=== PATIENT | female | born 1945 | race Caucasian/White ===

== ENCOUNTER 2025-04-04 08:35 | Day surgery (SDC) | payer OTHER ==
[2025-04-03 08:44] LABS: BASO % 0.7 % (0.1-1.2); EOS # 0.14 (0.04-0.54); EOS % 3.0 % (0.7-7.0); LYMPH # 1.72 (1.18-3.74); LYMPH % 37.4 % (19.3-53.1); MEAN PLATELET VOLUME 9.70 fl (9.4-12.4); MONO # 0.44 (0.24-0.82); MONO % 9.6 % (4.7-12.5); NEUT # 2.25 (1.56-6.13); NEUT % 48.9 % (34.0-71.1); RED CELL DISTRIBUTION WIDTH 12.7 % (11.6-14.4)
[2025-04-03 08:47] LABS: URINE APPEARANCE Clear; URINE BILIRRUBIN Negative (NEGATIVE); URINE BLOOD Negative; URINE COLOR Yellow; URINE GLUCOSE Negative (NEGATIVE); URINE KETONE Negative (NEGATIVE); URINE LEUKOCYTE Small; URINE NITRATE Negative; URINE PROTEIN Negative (NEGATIVE); URINE UROBILINOGEN 1.0 E.U./dl
[2025-04-03 08:48] LABS: URINE BACTERIA 921.6 uL (0.0-1933); URINE EPITHELIAL CELLS 20.5 uL (0.0-38.8); URINE RBC 3.5 uL (0.0-20.8); URINE WBC 25.3 uL (0.0-23.2)
[2025-04-03 08:50] LABS: URINE CAST 0.58 uL (0.0-1.40)
[2025-04-03 09:04] LABS: COVID-19 AG NEGATIVE (NEGATIVE)
[2025-04-03 09:08] LABS: INR 0.98
[2025-04-03 09:16] LABS: ALT/SGPT 23.0 U/L (12-78); AST/SGOT 19.0 U/L (15-37); BILIRUBIN TOTAL 0.42 mg/dL (0.3-1.2); BUN CREA RATIO 27.0 (7.0-25.0); CREATININE SERUM 0.75 mg/dL (0.55-1.02); GFR 74.73; GLOBULINA 4.1 G/DL (2.4-3.5); GLUCOSE FASTING 99.0 mg/dL (65-100); OSMOLALITY SERUM 291.0 MOSM/KG (275-295)
[2025-04-03 10:54] VITALS: BP 180/80
[~2025-04-04] VITALS: Ht 160 cm; Wt 68.0 kg
[2025-04-04] MEDS ORDERED: CEFAZOLIN SODIUM 1,000 MG VIAL ONE (09:59)
[2025-04-04] MEDS ORDERED: CHLORHEXIDINE GLUCONATE 120 ML BOTTLE TOP ONE (12:15)
[2025-04-04] MEDS ORDERED: hydrALAZINE HCL 20 MG VIAL ONE (14:06)
== END 2025-04-04 16:35 | disposition home or self-care (01) ==
LOC: CIR.AMB 08:35
PROVIDERS: ATTEND Surgery
DX: C50.411 Malignant neoplasm of upper-outer quadrant of right female breast (principal)